=== PATIENT | female | born 1950 | race Caucasian/White ===

== ENCOUNTER 2023-11-22 12:56 | Outpatient (RCR) | payer OTHER, MEDICARE, SELFPAY | END 2023-11-22 23:59 | disposition home or self-care (01) | LOC: RPT 12:56 | PROVIDERS: ATTENDING PHYSICIAN Nurse Practitioner Family; FAMILY PHYSICIAN Family Medicine | DX: M54.2 Cervicalgia (principal); M54.51 Vertebrogenic low back pain; M25.512 Pain in left shoulder; Z73.6 Limitation of activities due to disability | CPT/HCPCS: 97010; 97110; 97112; 97140 ==

== ENCOUNTER 2025-06-02 11:30 | Emergency (ER) | payer MEDICARE, SELFPAY ==
[2025-06-02 11:35] VITALS: BP 176/97
--- NOTE | 2025-06-02 13:05 | ED.GENMED ---
Addendum entered and electronically signed by Brandon Mercedes PA-C 06/04/25 06:58:
Urine culture with 100,000 colony-forming units of E. coli. On Cipro. Sensitivities pending
Original Note:
History of Present Illness
General
Chief Complaint: Abdominal Pain
Time Seen by Provider: 06/02/25 12:33
History of Present Illness
History of Present Illness:
75-year-old female presents to the emergency department for evaluation of right lower quadrant abdominal pain and right flank pain has been gradually worsening for the past 2 weeks. Pain is worse when she lies down or sits for a period of time,
improves if she is upright. Denies any fever, chills, sweats, weight loss, nausea, vomiting, or diarrhea. No lower urinary tract voiding symptoms. Denies dysuria or hematuria. No history of abdominal surgery
Past History
Past History
ED Past Medical History: Other (colon polyp)
ED Past Surgical History: None
Social History
Tobacco: Non-smoker
Alcohol: Occasional
Drug: None
Living: with family
Employment: Employed
Review of Systems
Review of Systems
Allergies reviewed?: Yes
All Other Systems: ROS reviewed and negative except as documented in HPI and ROS
Phy Exam
Physical Exam
Physical Exam:
GEN: Well appearing, NAD, WDWN
HEENT: Oral mucosa moist, no scleral icterus
Cardiac: Regular rate and rhythm, no murmurs
Lung: No respiratory distress, no tachypnea
Abdomen: Soft, mild right lower quadrant tenderness not focal to McBurney's point although obesity limits exam, no CVA tenderness, no rigidity
MSK: No gross deformity or injuries
Skin: Good color, no pallor or jaundice, no rashes
Neuro: AO x3, moves all extremities freely
Psych: Calm, cooperative
Course
Orders/Labs/Results
Orders:
Orders
06/02/25 13:04
CT Abd/Pel (IV only)-DH only Urgent
Comment:
Reason For Exam: RLQ pain
0.9% Sodium Chloride 1000 ml [Nss] 1,000 ml IV BOLUS
Ketorolac [Toradol] 15 mg IV NOW STA
06/02/25 13:22
Complete Blood Count/With Diff Urgent
Comprehensive Metabolic Panel Urgent
Lipase Urgent
06/02/25 14:54
Urinalysis Reflex To Culture Urgent
Date Specimen was Collected: 06/02/25
Time Specimen was Collected: 13:46
Urine Microscopic Reflex Cult Urgent
Urine Culture Urgent
MELANIE Source: U
Specimen Description:
Date Specimen was Collected: 06/02/25
Time Specimen was Collected: 13:46
06/02/25 16:06
Ciprofloxacin 200 mg/[id number] [Cipro 200 mg] 100 ml IV NOW
06/02/25 16:13
Oxycodone/Acetaminophen [Percocet 5/325] 1 tablet PO NOW STA
Abnormal Lab Results
06/02/25 06/02/25
13:22 14:54
WBC 4.7 L 10^3/uL
(4.8-10.8)
Absolute Lymphs (auto) 1.1 L 10^3/uL
(1.2-3.4)
Potassium 5.2 H mmol/L
(3.5-5.1)
Glucose 118 H mg/dl
(70-99)
Calcium 11.9 H mg/dl
(8.4-10.2)
ALT 39 H U/L
(0-35)
Alkaline Phosphatase 236 H U/L
(38-126)
Urine Nitrite (Reflex) Positive A
(Negative)
Urine Bacteria (Reflex) Many A
(Negative)
Urine Albumin (Reflex) 1+ A
(Neg - Trace)
06/02/25 13:22
06/02/25 13:22
Vital Signs
Initial and Last Documented VS:
Initial Vital Signs
Temp Pulse Resp BP
98.2 F 77 18 176/97
06/02/25 11:35 06/02/25 11:35 06/02/25 11:35 06/02/25 11:35
Last Documented Vital Signs
Temp Pulse Resp BP
98.2 F 77 18 176/97
06/02/25 11:35 06/02/25 11:35 06/02/25 11:35 06/02/25 11:35
MDM/Problems Addressed
MDM/Problems Addressed:
75-year-old female presenting with right lower quadrant flank pain, workup reveals nitrite positive urine with large bacteria suggestive of UTI. CT unremarkable. Will treat as pyelonephritis with Cipro, cannot use cephalosporins due to allergies.
*Pulse Oximetry
Patient hypoxic: no
*Critical Care Note
Total Time (30-74mins, 75-104mins- exclusive of procedures): Not Applicable
ED Attending Note
-
Portions of this chart may have been created with voice recognition software.� Occasional wrong word or��sound alike� substitutions may have occurred due to the inherent limitations of voice recognition software.
Discharge Plan
Departure
Patient Disposition: Home (Routine Discharge)
Date of Disposition: 06/02/25
Time of Disposition: 16:14
Patient with high blood pressure during this ER visit?: No
Discharge Problem:
Urinary tract infection
Instructions: Urinary tract infections in adults
Prescriptions:
New
ciprofloxacin HCl [Cipro] 500 mg tablet
500 mg PO BID 7 Days Qty: 14 0RF
oxycodone-acetaminophen [Percocet] 5-325 mg tablet
1 tab PO Q6HPRN PRN (Reason: pain) Qty: 8 0RF
No Action
sennosides [senna] 8.6 mg Tablet
17.6 mg PO BID Qty: 14 0RF
lidocaine [Aspercreme (lidocaine)] 4 % Adhesive Patch,Medicated
1 patch topical DAILY Qty: 14 0RF
polyethylene glycol 3350 17 gram Powder In Packet
17 g PO DAILY Qty: 15 0RF
docusate sodium 100 mg Capsule
100 mg PO BID Qty: 30 0RF
oxycodone 5 mg Tablet
5 mg PO Q6HPRN PRN (Reason: mod pain, try 2nd) Qty: 28 0RF
acetaminophen [Tylenol Extra Strength] 500 mg tablet
500 mg PO Q6H PRN (Reason: mild pain) Qty: 1 0RF
methylprednisolone [Medrol (Anderson)] 4 mg tablets,dose pack
See Rx Instructions .ROUTE .COMPLEX Qty: 21 0RF
Rx Instructions:
orally per package directions
Referrals:
Diego Madera DO [Family Provider, Family Practice]
Interventions
Interventions:
*Risk Screen - Suicide Last Done: 06/02/25 11:35
*General Assessment Last Done: 06/02/25 13:13
*Neglect/Abuse Screening Last Done: 06/02/25 13:13
*ED- Fall Risk Assessment Last Done: 06/02/25 13:13
*ED COVID-19 Vaccine History Last Done: 06/02/25 13:13
Discharge Date and Time
Print Language: PANAMANIAN
[2025-06-02 13:11] VITALS: BMI 32.1
[2025-06-02] MEDS: TORADOL 15 MG IV (13:23)
[2025-06-02] MEDS: NSS 1000 IV (13:24)
[2025-06-02 13:32] LABS: Hematocrit 45.6 % (37.0-47.0); Hemoglobin 15.8 g/dL (12.0-16.0); Mean Corp Hgb Conc. 34.6 g/dL (33.0-37.0); Mean Corpuscular Volume 88.2 fL (81.0-99.0); Nucleated Red Blood Cells % 0 %; Platelet Count 271 10^3/uL (130-400); Red Cell Dist. Width 13.2 % (11.5-14.5)
[2025-06-02 13:46] LABS: ALT (SGPT) 39 U/L (0-35); AST (SGOT) 29 U/L (14-36); Albumin 4.3 g/dl (3.5-5.0); Alkaline Phosphatase 236 U/L (38-126); Blood Urea Nitrogen 13 mg/dl (7-17); Calcium 11.9 mg/dl (8.4-10.2); Carbon Dioxide 28 mmol/L (22-30); Chloride 106 mmol/L (98-107); Estimated Creatinine Clearance 95 ml/min; Glucose 118 mg/dl (70-99); Lipase 63 U/L (23-300); Potassium 5.2 mmol/L (3.5-5.1); Sodium 138 mmol/L (135-145); Total Protein 7.7 g/dl (6.3-8.2); eGFR > 60.00
[2025-06-02 15:16] LABS: Urine Character Cloudy (Clear)
[2025-06-02 15:39] LABS: Urine Red Blood Cell 0-2 /HPF (0-2); Urine Squamous Cell 0-2 /LPF (Few)
[2025-06-02] MEDS: PERCOCET 5/325 1 TABLET PO (16:22)
[2025-06-02] MEDS: CIPRO 200 MG 100 IV (16:46)
[2025-06-02 16:49] VITALS: BP 151/75
== END 2025-06-02 17:05 | disposition home or self-care (01) ==
LOC: EMR 11:30
PROVIDERS: Physician Assistant; EMERGENCY PHYSICIAN Emergency Medicine; FAMILY PHYSICIAN Family Medicine
DX: N39.0 Urinary tract infection, site not specified (principal); B96.20 Unspecified Escherichia coli [E. coli] as the cause of diseases classified elsewhere; E66.9 Obesity, unspecified; Z68.32 Body mass index [BMI] 32.0-32.9, adult; Z88.1 Allergy status to other antibiotic agents
CPT/HCPCS: 99284; 96374; 96375; 96361; 74177; 80053; 81003; 81015; 83690; 85025; 87077; 87086; 87186; Q9967